=== PATIENT | female | born 1990 | race Two or more races ===

== ENCOUNTER 2024-04-10 18:12 | Emergency (ER) | payer BC, OTHER ==
[~2024-04-10] VITALS: Ht 165.1 cm; Wt 81.2 kg
[2024-04-10 18:35] LABS: Urine Bacteria FEW /hpf (None Seen); Urine Blood 3+ /uL (Negative); Urine Clarity Clear (Clear); Urine Color Colorless (Yellow); Urine Mucus FEW (None Seen); Urine Protein, UAD TRACE (Negative); Urine Specific Gravity 1.003 (1.001-1.035); Urine Urobilinogen Normal (Negative); Urine WBC 16 /hpf (0 - 5)
[2024-04-10 19:08] LABS: Basophils # (auto) 0 10 ^3/uL (0-0.2); Basophils % (auto) 0.4 % (0.0-2.0); Eosinophils # (auto) 0 10 ^3/uL (0-0.8); Eosinophils % (auto) 0.8 % (0.0-7.0); Hematocrit 42.3 % (36.0-46.0); Hemoglobin 14.7 g/dL (12.2-16.2); Lymphocytes # (auto) 1.5 10 ^3/uL (0.4-5.4); Lymphocytes % (auto) 26.3 % (10.0-50.0); Mean Corpuscular Hemoglobin 31.3 pg (28.0-32.0); Mean Corpuscular Hgb Conc. 34.7 g/dL (32.0-36.0); Mean Corpuscular Volume 90.3 fL (80.0-100.0); Monocytes # (auto) 0.5 10 ^3/uL (0-1.3); Monocytes % (auto) 7.9 % (0.0-12.0); Neutrophils # (auto) 3.7 10 ^3/uL (1.6-8.6); Neutrophils % (auto) 64.6 % (37.0-80.0); Nucleated Red Blood Cells % 0.2 %; Platelet Count (auto) 180 10^3/uL (140-450); Red Blood Cells 4.69 10^6/uL (4.0-5.20); Red Cell Distribution Width 13.5 % (11.8-14.3); White Blood Cell 5.8 10^3/uL (4.4-10.8)
[2024-04-10 19:31] LABS: Alanine Aminotransferase 19 U/L (7-40); Albumin 5.2 g/dL (3.2-4.8); Alkaline Phosphatase 81 U/L (46-116); Anion Gap 9 (5-15); Aspartate Aminotransferase 14 U/L (13-40); BUN/Creatinine Ratio 6.9 (10.0-20.0); Bilirubin, Total 0.4 mg/dL (0.2-1.0); Blood Urea Nitrogen 5 mg/dL (9-23); Calcium 9.7 mg/dL (8.7-10.4); Carbon Dioxide 24 mmol/L (20-31); Chloride 107 mmol/L (98-107); Glucose 88 mg/dL (74-106); Lipase 52 U/L (12-53); Potassium 3.6 mmol/L (3.5-5.1); Sodium 140 mmol/L (136-145); Total Protein 8.3 g/dL (5.7-8.2)
[2024-04-10] MEDS ORDERED: OMEP-448 PO (20:44)
[2024-04-10] MEDS ORDERED: FAMO20TA10 PO (20:44)
[2024-04-10 21:50] VITALS: BP 122/68; PULSE 66; RESP 14; TEMP 98.2; O2SAT 100
== END 2024-04-10 21:52 | disposition home or self-care (01) ==
LOC: ER 18:12
DX: K21.9 Gastro-esophageal reflux disease without esophagitis (principal); R19.7 Diarrhea, unspecified
CPT/HCPCS: 36415; 74176; 80053; 81001; 83690; 85025

== ENCOUNTER 2024-04-17 07:56 | Emergency (ER) | payer BC ==
[~2024-04-17] VITALS: Ht 165.1 cm; Wt 81.6 kg
[~2024-04-17 07:56] MED LIST: FAMO20TA10 PO; OMEP-448 PO
[2024-04-17] MEDS ORDERED: HYDR25SU21 PR (08:03)
[2024-04-17 08:17] VITALS: BP 121/58; PULSE 77; RESP 17; TEMP 98.8; O2SAT 97
[2024-04-17 08:50] LABS: Urine Bacteria None Seen /hpf (None Seen)
[2024-04-17 09:00] LABS: Urine Blood 1+ /uL (Negative); Urine Clarity Clear (Clear); Urine Color Colorless (Yellow); Urine Protein, UAD Negative (Negative); Urine Specific Gravity 1.007 (1.001-1.035); Urine Urobilinogen Normal (Negative); Urine WBC 1 /hpf (0 - 5)
== END 2024-04-17 09:14 | disposition home or self-care (01) ==
LOC: ER 07:56
DX: K62.5 Hemorrhage of anus and rectum (principal); K21.9 Gastro-esophageal reflux disease without esophagitis; Z79.899 Other long term (current) drug therapy
CPT/HCPCS: 81001

== ENCOUNTER 2024-04-24 20:26 | Emergency (ER) | payer BC ==
[~2024-04-24] VITALS: Ht 165.1 cm; Wt 82.0 kg
[~2024-04-24 20:26] MED LIST changes: +HYDR25SU21 PR
[2024-04-24 21:34] LABS: Basophils # (auto) 0 10 ^3/uL (0-0.2); Basophils % (auto) 0.6 % (0.0-2.0); Eosinophils # (auto) 0.1 10 ^3/uL (0-0.8); Eosinophils % (auto) 0.9 % (0.0-7.0); Hematocrit 39.8 % (36.0-46.0); Hemoglobin 13.8 g/dL (12.2-16.2); Lymphocytes # (auto) 1.7 10 ^3/uL (0.4-5.4); Lymphocytes % (auto) 24.8 % (10.0-50.0); Mean Corpuscular Hgb Conc. 34.6 g/dL (32.0-36.0); Mean Corpuscular Volume 89.7 fL (80.0-100.0); Monocytes # (auto) 0.5 10 ^3/uL (0-1.3); Neutrophils # (auto) 4.4 10 ^3/uL (1.6-8.6); Neutrophils % (auto) 65.7 % (37.0-80.0); Nucleated Red Blood Cells % 0.1 %; Platelet Count (auto) 236 10^3/uL (140-450); Red Blood Cells 4.44 10^6/uL (4.0-5.20); Red Cell Distribution Width 12.9 % (11.8-14.3); White Blood Cell 6.8 10^3/uL (4.4-10.8)
[2024-04-24 21:51] LABS: Alanine Aminotransferase 34 U/L (7-40); Albumin 4.7 g/dL (3.2-4.8); Alkaline Phosphatase 63 U/L (46-116); Anion Gap 5 (5-15); Aspartate Aminotransferase 22 U/L (13-40); BUN/Creatinine Ratio 7.6 (10.0-20.0); Blood Urea Nitrogen 5 mg/dL (9-23); Calcium 9.3 mg/dL (8.7-10.4); Carbon Dioxide 26 mmol/L (20-31); Chloride 110 mmol/L (98-107); Glucose 107 mg/dL (74-106); Lipase 57 U/L (12-53); Potassium 3.5 mmol/L (3.5-5.1); Sodium 141 mmol/L (136-145)
[2024-04-24 21:52] LABS: Bilirubin, Total 0.2 mg/dL (0.2-1.0); Total Protein 7.5 g/dL (5.7-8.2)
[2024-04-24] MEDS ORDERED: IBUP1TAB5 PO (22:20)
[2024-04-24 23:54] VITALS: BP 105/83; TEMP 98.7
[2024-04-24 23:56] VITALS: PULSE 77; RESP 16; O2SAT 93
== END 2024-04-24 23:59 | disposition home or self-care (01) ==
LOC: ER 20:26
DX: M94.0 Chondrocostal junction syndrome [Tietze] (principal); R10.2 Pelvic and perineal pain; K21.9 Gastro-esophageal reflux disease without esophagitis; Z79.899 Other long term (current) drug therapy
CPT/HCPCS: 36415; 71250; 80053; 83690; 84702; 85025

== ENCOUNTER 2024-05-06 16:12 | Emergency (ER) | payer BC ==
[~2024-05-06] VITALS: Ht 165.1 cm; Wt 81.7 kg
[~2024-05-06 16:12] MED LIST changes: +IBUP1TAB5 PO
[2024-05-06 16:24] VITALS: BP 133/95; PULSE 74; RESP 16; O2SAT 99
[2024-05-06 17:29] LABS: Basophils # (auto) 0 10 ^3/uL (0-0.2); Basophils % (auto) 0.6 % (0.0-2.0); Eosinophils # (auto) 0 10 ^3/uL (0-0.8); Eosinophils % (auto) 0.4 % (0.0-7.0); Hematocrit 39.8 % (36.0-46.0); Hemoglobin 13.8 g/dL (12.2-16.2); Lymphocytes # (auto) 1.2 10 ^3/uL (0.4-5.4); Lymphocytes % (auto) 23.4 % (10.0-50.0); Mean Corpuscular Hemoglobin 31.2 pg (28.0-32.0); Mean Corpuscular Hgb Conc. 34.7 g/dL (32.0-36.0); Monocytes # (auto) 0.4 10 ^3/uL (0-1.3); Monocytes % (auto) 7.4 % (0.0-12.0); Neutrophils # (auto) 3.6 10 ^3/uL (1.6-8.6); Neutrophils % (auto) 68.2 % (37.0-80.0); Platelet Count (auto) 189 10^3/uL (140-450); Red Blood Cells 4.43 10^6/uL (4.0-5.20); Red Cell Distribution Width 13.1 % (11.8-14.3); White Blood Cell 5.2 10^3/uL (4.4-10.8)
[2024-05-06 17:35] LABS: Chloride 107 mmol/L (98-107); Potassium 3.8 mmol/L (3.5-5.1); Sodium 141 mmol/L (136-145)
[2024-05-06 17:36] LABS: Anion Gap 8 (5-15); Calcium 9.9 mg/dL (8.7-10.4); Carbon Dioxide 26 mmol/L (20-31)
[2024-05-06 17:41] LABS: BUN/Creatinine Ratio 8.8 (10.0-20.0); Blood Urea Nitrogen 6 mg/dL (9-23); Glucose 97 mg/dL (74-106)
[2024-05-06] MEDS ORDERED: OMEP-335 PO (19:15)
== END 2024-05-06 20:22 | disposition home or self-care (01) ==
LOC: ER 16:12
DX: K92.1 Melena (principal); K21.9 Gastro-esophageal reflux disease without esophagitis; Z79.899 Other long term (current) drug therapy
CPT/HCPCS: 36415; 80048; 85025

== ENCOUNTER → 2024-05-19 | Outpatient (CLI) | payer BC ==
[~2024-05-19] MED LIST changes: +OMEP-335 PO
[2024-05-19 08:30] LABS: Urine Bacteria None Seen /hpf (None Seen)
[2024-05-19 09:15] LABS: Basophils # (auto) 0 10 ^3/uL (0-0.2); Basophils % (auto) 0.5 % (0.0-2.0); Eosinophils # (auto) 0.1 10 ^3/uL (0-0.8); Eosinophils % (auto) 1.4 % (0.0-7.0); Hematocrit 41.8 % (36.0-46.0); Hemoglobin 14.3 g/dL (12.2-16.2); Lymphocytes # (auto) 1.9 10 ^3/uL (0.4-5.4); Lymphocytes % (auto) 31.8 % (10.0-50.0); Mean Corpuscular Hemoglobin 30.9 pg (28.0-32.0); Mean Corpuscular Hgb Conc. 34.2 g/dL (32.0-36.0); Mean Corpuscular Volume 90.4 fL (80.0-100.0); Monocytes # (auto) 0.5 10 ^3/uL (0-1.3); Monocytes % (auto) 8.3 % (0.0-12.0); Neutrophils # (auto) 3.4 10 ^3/uL (1.6-8.6); Nucleated Red Blood Cells % 0.1 %; Platelet Count (auto) 182 10^3/uL (140-450); Red Blood Cells 4.62 10^6/uL (4.0-5.20); Red Cell Distribution Width 13.6 % (11.8-14.3); White Blood Cell 5.8 10^3/uL (4.4-10.8)
[2024-05-19 09:19] LABS: LDL Cholesterol 118 mg/dL (< 100); Triglycerides 108 mg/dL (< 150)
[2024-05-19 09:20] LABS: Cholesterol 170 mg/dL (< 200); HDL Cholesterol 47 mg/dL (40-59)
[2024-05-19 10:19] LABS: Urine Blood 2+ /uL (Negative); Urine Clarity Clear (Clear); Urine Color Light-Yellow (Yellow); Urine Protein, UAD Negative (Negative); Urine Specific Gravity 1.023 (1.001-1.035); Urine Urobilinogen Normal (Negative); Urine WBC <1 /hpf (0 - 5); Urine pH 5.5 (5.0-9.0)
[2024-05-19 14:50] LABS: Alanine Aminotransferase 29 U/L (7-40); Albumin 4.7 g/dL (3.2-4.8); Alkaline Phosphatase 69 U/L (46-116); Anion Gap 12 (5-15); Aspartate Aminotransferase 15 U/L (13-40); BUN/Creatinine Ratio 15.2 (10.0-20.0); Bilirubin, Total 0.5 mg/dL (0.2-1.0); Blood Urea Nitrogen 12 mg/dL (9-23); Calcium 9.8 mg/dL (8.7-10.4); Carbon Dioxide 21 mmol/L (20-31); Chloride 107 mmol/L (98-107); Glucose 95 mg/dL (74-106); Potassium 4.4 mmol/L (3.5-5.1); Sodium 140 mmol/L (136-145); Total Protein 7.9 g/dL (5.7-8.2)
== END | disposition home or self-care (01) ==
LOC: LAB 08:16
PROVIDERS: ATTEND Internal Medicine
DX: Z13.31 Encounter for screening for depression (principal)
CPT/HCPCS: 36415; 80053; 80061; 81001; 82270; 83036; 84443; 85025

== ENCOUNTER 2024-07-06 07:02 | Emergency (ER) | payer BC ==
[~2024-07-06] VITALS: Ht 165.1 cm; Wt 76.9 kg
--- NOTE | 2024-07-06 07:51 | ED.PDOC ---
GI ASSESSMENT HPI Comments 33Y F with PMHx GERD presents to ED for chief complaint RUQ abd pain [id number] with diarrhea. Pt claims she is jaundiced under her tongue and soles of her feet. Pt states she also has a "weird taste" on her tongue. LMP 06/22/2024. Pt was seen by GI specialist on 06/07/2024 and was told symptoms could be caused by liver. Chief Complaint: Abdominal Pain Time Seen by MD: 07:43 Primary Care Provider: MATT Beckman Notes: Nurses Notes, Medications, Allergies Allergies: Coded Allergies: NO KNOWN ALLERGIES (Unverified , 04/10/24) Home Meds Active Scripts Omeprazole (Omeprazole) 20 Mg Tab, 20 MG PO DAILY for 21 Days, #21 TAB Prov:ELFEGO MALDONADO 05/06/24 Ibuprofen Micronized (Ibuprofen) 600 Mg Tab, 600 MG PO Q6HP PRN, #30 TAB prn pain take with food Prov:VINAY FIELDS MD 04/24/24 Hydrocortisone Acetate (Anusol-Hc) 25 Mg Sup, 1 SUPP ND BID, #14 SUPP Prov:LEDY RAHMAN MD 04/17/24 Famotidine (PEPCID TABLET) 20 Mg Tb, 1 TAB PO BID, #60 TAB 5 Refills Prov:PILAR HUNG 04/10/24 Omeprazole (Omeprazole Dr) 40 Mg Cap, 40 MG PO DAILY, #40 CAP Prov:PILAR HUNG 04/10/24 Information Source: Patient Mode of Arrival: Ambulatory Timing: Months Duration: Since onset Quality: Sharp Vomitus: None Stool: Loose, Watery Severity: Mild Recent: None Recent Hx of: None Pain Location: RUQ Modifying Factors: Nothing Associated sign and symptoms: Diarrhea, Abdominal Pain Past Medical History PAST MEDICAL HISTORY: GERD Surgical History: Denies all surgeries INTERNATIONAL MARKETING COORDINATOR History: No Pertinent INTERNATIONAL MARKETING COORDINATOR History Family History Family History: Reviewed,noncontributory to illness, Unknown Social History Smoker: Non-Smoker Alcohol: Denies ETOH Use Drugs: Denies Drug Use Lives In: Home Constitutional: denies: chills, diaphoresis, fatigue, fever, malaise, sweats, weakness, others EENTM: denies: blurred vision, double vision, ear bleeding, ear discharge, ear drainage, ear pain, ear ringing, eye pain, eye redness, hearing loss, mouth pain, mouth swelling, nasal discharge, nose bleeding, nose congestion, nose pain, photophobia, tearing, throat pain, throat swelling, voice changes, others Respiratory: denies: cough, hemoptysis, orthopnea, SOB at rest, shortness of breath, SOB with excertion, stridor, wheezing, others Cardiovascular: denies: chest pain, dizzy spells, diaphoresis, Dyspnea on exertion, edema, irregular heart beat, left arm pain, lightheadedness, palpitations, PND, syncope, others Gastrointestinal: reports: abdominal pain, diarrhea; denies: abdomen distended, blood streaked bowels, constipated, dysphagia, difficulty swallowing, hematemesis, melena, nausea, poor appetite, poor fluid intake, rectal bleeding, rectal pain, vomiting, others Genitourinary: denies: abnormal vagina bleeding, burning, dyspareunia, dysuria, flank pain, frequency, hematuria, incontinence, pain, , vagina discharge, urgency, others Neurological: denies: dizziness, fainting, headache, left sided numbness, left sided weakness, numbness, paresthesia, pre-existing deficit, right sided numbness, right sided weakness, seizure, speech problems, tingling, tremors, weakness, others Musculoskeletal: denies: back pain, gout, joint pain, joint swelling, muscle pain, muscle stiffness, neck pain, others Integumetry: denies: bruises, change in color, change in hair/nails, dryness, laceration, lesions, lumps, rash, wounds, others Allergic/Immunocompromised: denies: Difficulty Healing, Frequent Infections, Hives, Itching, others Hematologic/Lymphatic: denies: anemia, blood clots, easy bleeding, easy bruising, swollen glands, others Endocrine: denies: excessive hunger, excessive sweating, excessive thirst, excessive urination, flushing, intolerance to cold, intolerance to heat, unexplained weight gain, unexplained weight loss, others Psychiatric: denies: anxiety, bipolar disorder, depression, hopeless, panic disorder, schizophrenia, sleepless, suicidal, others All Other Systems: Reviewed and Negative Physical Exam General Appearance: No Apparent Distress, Normal, Other (Anxious) HEENT: Normal ENT Inspection, PERRL/EOMI, Pharynx Normal, TMs Normal, Other (No scleral icterus patient is convinced that she has jaundice she does not) Neck: Full Range of Motion, Non-Tender, Normal, Normal Inspection Respiratory: Chest Non-Tender, Lungs Clear, No Accessory Muscle Use, No Respiratory Distress, Normal Breath Sounds Cardiovascular: No Edema, No JVD, No Murmur, No Gallop, Normal Peripheral Pulses, Regular Rate/Rhythm Breast Exam: Deferred Gastrointestinal: No Organomegaly, Non Tender, No Pulsatile Mass, Normal Bowel Sounds, Soft Genitalia: Deferred Pelvic: Deferred Rectal: Deferred Extremities: No calf tenderness, Normal capillary refill, Normal inspection, Normal range of motion, Non-tender, No pedal edema Musculoskeletal : Apperance: Normal Neurologic: Alert, plasma table operator II-XII nml as Tested, No Motor Deficits, Normal Affect, Normal Mood, No Sensory Deficits Cerebellar Function: Normal Reflexes: Normal Skin: Dry, Normal Color, Warm Peripheral Pulses: 1+ carotid (R), 1+ carotid (L) Lymphatic: No Adenopathy Was a procedure done? Was a procedure done?: No GI differential Dx Differential Diagnosis: Cholecystitis, Gastroenteritis, UTI, Dehydration, Elect rolyte Imbalance, , Bacterial, Viral, Anemia X-Ray, Labs, Meds, VS Vital Signs Date Time Temp Pulse Resp B/P (MAP) Pulse Ox O2 Delivery O2 Flow Rate FiO2 07/06/24 08:12 76 17 98 Room Air 07/06/24 08:12 98.3 76 17 128/69 (88) 98 98.3 07/06/24 07:23 98.7 85 18 133/89 (104) 98 Lab Test 07/06/24 08:15 07/06/24 07:47 Range/Units White Blood Count 4.1 L 4.4-10.8 10^3/uL Red Blood Count 4.70 4.0-5.20 10^6/uL Hemoglobin 14.4 12.2-16.2 g/dL Hematocrit 42.1 36.0-46.0 % Mean Corpuscular Volume 89.6 80.0-100.0 fL Mean Corpuscular Hemoglobin 30.7 28.0-32.0 pg Mean Corpuscular Hemoglobin Concent 34.3 32.0-36.0 g/dL Red Cell Distribution Width 13.5 11.8-14.3 % Platelet Count 179 140-450 10^3/uL Mean Platelet Volume 11.0 H 6.9-10.8 fL Neutrophils (%) (Auto) 71.9 37.0-80.0 % Lymphocytes (%) (Auto) 19.6 10.0-50.0 % Monocytes (%) (Auto) 7.8 0.0-12.0 % Eosinophils (%) (Auto) 0.3 0.0-7.0 % Basophils (%) (Auto) 0.4 0.0-2.0 % Neutrophils # (Auto) 2.9 1.6-8.6 10 ^3/uL Lymphocytes # (Auto) 0.8 0.4-5.4 10 ^3/uL Monocytes # (Auto) 0.3 0-1.3 10 ^3/uL Eosinophils # (Auto) 0 0-0.8 10 ^3/uL Basophils # (Auto) 0 0-0.2 10 ^3/uL Nucleated Red Blood Cells 0.0 % Sodium Level 139 136-145 mmol/L Potassium Level 3.6 3.5-5.1 mmol/L Chloride Level 107 98-107 mmol/L Carbon Dioxide Level 24 20-31 mmol/L Anion Gap 8 5-15 Blood Urea Nitrogen 5 L 9-23 mg/dL Creatinine 0.74 0.550-1.02 mg/dL Glomerular Filtration Rate Calc 111 >90 mL/min BUN/Creatinine Ratio 6.8 L 10.0-20.0 Serum Glucose 91 74-106 mg/dL Calcium Level 10.0 8.7-10.4 mg/dL Total Bilirubin 0.7 0.2-1.0 mg/dL Aspartate Amino Transferase (AST) 16 13-40 U/L Alanine Aminotransferase (ALT) 18 7-40 U/L Alkaline Phosphatase 71 46-116 U/L Total Protein 7.8 5.7-8.2 g/dL Albumin 4.8 3.2-4.8 g/dL Beta HCG, Quantitative 1.4 L 1.5-4.2 mIU/mL Urine Color Light-yellow Yellow Urine Clarity Clear Clear Urine pH 6.0 5.0-9.0 Urine Specific [place] 1.011 1.001-1.035 Urine Protein Negative Negative Urine Ketones 3+ H Negative Urine Blood 1+ H Negative /uL Urine Nitrite Negative Negative Urine Bilirubin Negative Negative Urine Urobilinogen Normal Negative mg/dL Urine Leukocyte Esterase Negative Negative /uL Urine RBC 2 0 - 4 /hpf Urine WBC 1 0 - 5 /hpf Urine Squamous Epithelial Cells Few <5 /hpf Urine Bacteria Few H None Seen /hpf Urine Mucus Few None Seen Urine Glucose Normal Normal mg/dL [facility] [id number] [facility] [address] Ph: [phone] DIAGNOSTIC IMAGING Diagnostic Imaging Report : [id number] Signed PATIENT: MARCO ANTONIO TIRADO ACCT: [id number] UNIT: [id number] : 1990 LOC: ER ROOM / BED: / AGE / SEX: 33 / F ADM STATUS: REG ER SERVICE [id number] ORDERING PHYSICIAN: SONU HUGHES MD PROCEDURE(s): GBUS - GALLBLADDER REASON: Right upper quadrant abdominal pain ORDER NUMBER(s): [id number], ACCESSION NUMBER(s): [id number] INDICATION: Right upper quadrant abdominal pain TECHNIQUE: Real time ultrasonography of the right upper quadrant was performed. COMPARISON: CT 04/10/2024 FINDINGS: The liver appears normal in echogenicity. There is cholelithiasis with out evidence of significant wall thickening or pericholecystic fluid. Common bile duct estimated 2 mm, within normal limits. The right kidney measures 10.5 cm and appears unremarkable. Visualized portions of the pancreas, intrahepatic IVC, abdominal aorta appear unremarkable. IMPRESSION: 1. Cholelithiasis without evidence of wall thickening or pericholecystic fluid. ATED BY: FENG ROSARIO MD DICTATED DATE/TIME: 07/06/24826 SIGNED BY: FENG ROSARIO MD SIGNED DATE/TIME: 07/06/24826 CC: X-Ray, Labs, Meds, VS Comment Course in the emergency department eventful patient came in complaining of abdominal pain right upper quadrant for about a month with episodic diarrhea and she has pursued it she is jaundiced Blood pressure 133/89 CBC normal Urine shows 3+ ketones 1+ blood and bacteria The ultrasound shows cholelithiasis without cholecystitis negative CMP normal including the bilirubin and the liver enzymes Patient will be discharged home she has been reassured she does not have jaundice Time of 1ST Reevaluation: 08:13 Reevaluation 1ST: Unchanged Time of 2ND Reevaluation: 09:04 Reevaluation 2ND: Unchanged Consultation: PCP Patient Education/Counseling: Diagnosis, Treatment, Prognosis, Need For Follow Up Family Education/Counseling: Diagnosis, Treatment, Prognosis, Need For Follow Up, No Family Present Departure 1 Departure Time of Disposition: 09:05 Impression: Primary Impression: Nonspecific abdominal pain Additional Impression: Cholelithiasis Qualified Codes: K80.20 - Calculus of gallbladder without cholecystitis without obstruction Disposition: 01 HOME / SELF CARE / HOMELESS Condition: Good Additional Instructions: Push fluids and follow up with your PCP Avoid heavy meals Discharged With: Self Critical Care Note Critical Care Time?: No Stability Stability form required: No Heart Score Heart Score: Heart Score Response (Comments) Value History N/A 0 EKG N/A 0 Age <45 0 Risk Factors No known risk factors 0 Troponin N/A 0 Total 0 I personally scribed for SONU HUGHES MD ([email or web address]) on 07/06/24 at 07:51. Electronically submitted by Jessica Thapa ([email or web address]). I personally scribed for SONU HUGHES MD ([email or web address]) on 07/06/24 at 08:29. Electronically submitted by Jessica Thapa ([email or web address]). SONU HUGHES MD Jul 06, 2024 07:51
[2024-07-06 08:12] VITALS: BP 128/69; PULSE 76; RESP 17; TEMP 98.3; O2SAT 98
[2024-07-06 08:21] LABS: Urine Bacteria FEW /hpf (None Seen); Urine Blood 1+ /uL (Negative); Urine Clarity Clear (Clear); Urine Color Light-Yellow (Yellow); Urine Mucus FEW (None Seen); Urine Protein, UAD Negative (Negative); Urine Specific Gravity 1.011 (1.001-1.035); Urine Squamous Epithelial Cell FEW /hpf (<5); Urine Urobilinogen Normal (Negative); Urine WBC 1 /hpf (0 - 5)
--- NOTE | 2024-07-06 08:27 | DVH ---
INDICATION: Right upper quadrant abdominal pain TECHNIQUE: Real time ultrasonography of the right upper quadrant was performed. COMPARISON: CT 04/10/2024 FINDINGS: The liver appears normal in echogenicity. There is cholelithiasis with out evidence of significant wa ll thickening or pericholecystic fluid. Common bile duct estimated 2 mm, within normal limits. The right kidney measures 10.5 cm and appears unremarkable. Visualized portions of the pancreas, int rahepatic IVC, abdominal aorta appear unremarkable. IMPRESSION: 1. Cholelithiasis without evidence of wall thickening or pericholecystic fluid.
[2024-07-06 08:34] LABS: Basophils # (auto) 0 10 ^3/uL (0-0.2); Basophils % (auto) 0.4 % (0.0-2.0); Eosinophils # (auto) 0 10 ^3/uL (0-0.8); Eosinophils % (auto) 0.3 % (0.0-7.0); Hematocrit 42.1 % (36.0-46.0); Hemoglobin 14.4 g/dL (12.2-16.2); Lymphocytes # (auto) 0.8 10 ^3/uL (0.4-5.4); Lymphocytes % (auto) 19.6 % (10.0-50.0); Mean Corpuscular Hemoglobin 30.7 pg (28.0-32.0); Mean Corpuscular Hgb Conc. 34.3 g/dL (32.0-36.0); Mean Corpuscular Volume 89.6 fL (80.0-100.0); Monocytes # (auto) 0.3 10 ^3/uL (0-1.3); Monocytes % (auto) 7.8 % (0.0-12.0); Neutrophils # (auto) 2.9 10 ^3/uL (1.6-8.6); Neutrophils % (auto) 71.9 % (37.0-80.0); Platelet Count (auto) 179 10^3/uL (140-450); Red Cell Distribution Width 13.5 % (11.8-14.3); White Blood Cell 4.1 10^3/uL (4.4-10.8)
[2024-07-06 08:55] LABS: Alanine Aminotransferase 18 U/L (7-40); Alkaline Phosphatase 71 U/L (46-116); Anion Gap 8 (5-15); Aspartate Aminotransferase 16 U/L (13-40); BUN/Creatinine Ratio 6.8 (10.0-20.0); Carbon Dioxide 24 mmol/L (20-31); Chloride 107 mmol/L (98-107); Glucose 91 mg/dL (74-106); Potassium 3.6 mmol/L (3.5-5.1); Sodium 139 mmol/L (136-145)
[2024-07-06 08:56] LABS: Bilirubin, Total 0.7 mg/dL (0.2-1.0); Total Protein 7.8 g/dL (5.7-8.2)
[2024-07-06 08:57] LABS: Albumin 4.8 g/dL (3.2-4.8); Blood Urea Nitrogen 5 mg/dL (9-23)
== END 2024-07-06 09:10 | disposition home or self-care (01) ==
LOC: ER 07:02
DX: K80.20 Calculus of gallbladder without cholecystitis without obstruction (principal); K21.9 Gastro-esophageal reflux disease without esophagitis; Z79.899 Other long term (current) drug therapy
CPT/HCPCS: 36415; 76705; 80053; 81001; 84702; 85025

== ENCOUNTER 2024-07-30 09:55 | Day surgery (SDC) | payer BC ==
[2024-07-26 11:00] LABS: Urine Bacteria None Seen /hpf (None Seen)
[2024-07-26 11:36] LABS: Urine Blood TRACE /uL (Negative); Urine Clarity Clear (Clear); Urine Color Light-Yellow (Yellow); Urine Mucus FEW (None Seen); Urine Protein, UAD Negative (Negative); Urine Specific Gravity 1.021 (1.001-1.035); Urine Squamous Epithelial Cell FEW /hpf (<5); Urine Urobilinogen Normal (Negative); Urine WBC < 1 /HPF (0-5)
[2024-07-26 11:41] LABS: Basophils # (auto) 0 10 ^3/uL (0-0.2); Basophils % (auto) 0.5 % (0.0-2.0); Eosinophils # (auto) 0 10 ^3/uL (0-0.8); Eosinophils % (auto) 0.5 % (0.0-7.0); Hematocrit 40.7 % (36.0-46.0); Hemoglobin 13.7 g/dL (12.2-16.2); Lymphocytes # (auto) 1.4 10 ^3/uL (0.4-5.4); Lymphocytes % (auto) 33.3 % (10.0-50.0); Mean Corpuscular Hemoglobin 30.3 pg (28.0-32.0); Mean Corpuscular Hgb Conc. 33.7 g/dL (32.0-36.0); Mean Corpuscular Volume 90.1 fL (80.0-100.0); Monocytes # (auto) 0.3 10 ^3/uL (0-1.3); Monocytes % (auto) 7.1 % (0.0-12.0); Neutrophils # (auto) 2.5 10 ^3/uL (1.6-8.6); Neutrophils % (auto) 58.6 % (37.0-80.0); Nucleated Red Blood Cells % 0.1 %; Platelet Count (auto) 175 10^3/uL (140-450); Red Blood Cells 4.52 10^6/uL (4.0-5.20); Red Cell Distribution Width 13.6 % (11.8-14.3); White Blood Cell 4.3 10^3/uL (4.4-10.8)
[2024-07-26 11:53] LABS: Alanine Aminotransferase 23 U/L (7-40); Alkaline Phosphatase 73 U/L (46-116); Anion Gap 7 (5-15); Carbon Dioxide 27 mmol/L (20-31); Chloride 106 mmol/L (98-107); Glucose 92 mg/dL (74-106); Potassium 4.4 mmol/L (3.5-5.1); Sodium 140 mmol/L (136-145)
[2024-07-26 11:54] LABS: Aspartate Aminotransferase 15 U/L (13-40); BUN/Creatinine Ratio 12.1 (10.0-20.0)
[2024-07-26 11:56] LABS: Bilirubin, Total 0.5 mg/dL (0.2-1.0); Total Protein 7.5 g/dL (5.7-8.2)
[2024-07-26 11:58] LABS: INR 1.02 (0.9-1.15); Partial Thromboplastin Time 26.7 SEC (24.5-34.5); Prothrombin Time 10.8 sec (9.3-11.8)
[2024-07-26 12:01] LABS: Albumin 4.9 g/dL (3.2-4.8); Blood Urea Nitrogen 8 mg/dL (9-23)
[~2024-07-30] VITALS: Ht 165.1 cm; Wt 76.2 kg
[~2024-07-30 09:55] MED LIST changes: +ASCO500T11 PO; -FAMO20TA10 PO; -HYDR25SU21 PR; -IBUP1TAB5 PO; +MAGN1CAP PO; -OMEP-335 PO; -OMEP-448 PO
[2024-07-30 11:33] VITALS: PULSE 80; RESP 16; TEMP 97.1; O2SAT 100
[2024-07-30 12:03] VITALS: BP 112/61; PULSE 63; RESP 14; O2SAT 98
--- NOTE | 2024-08-13 09:24 | DVHNC2 ---
Procedure - DATE OF PROCEDURE: JULY 30, 2024 SURGEON: NOAH CORDERO MD REFERRING PROVIDER: MCKENNA GUTIERREZ MD PROCEDURE PERFORMED: 1. ESOPHAGOGASTRODUODENOSCOPY WITH BIOPSY WITH ANESTHESIA 2. COLONOSCOPY WITH BIOPSY WITH ANESTHESIA PRE-PROCEDURE DIAGNOSIS: 1. GERD REFRACTORY TO TREATMENT 2. ABDOMINAL PAIN 3. MELENA 4. BLOATING 5. CONSTIPATION POSTPROCEDURE DIAGNOSIS: 1. MILD EROSIVE ESOPHAGITIS 2. MILD EROSIVE GASTRITIS 3. EXTERNAL HEMORRHOIDS OTHERWISE NORMAL COLONOSCOPY INDICATIONS FOR PROCEDURE: The patient is a 33-year-old female with a past medical history significant for chronic abdominal pain, GERD refractory to treatment, melena, complaints of bloating and constipation lasting more than three months. EGD and colonoscopy are warranted for evaluation. MEDICATIONS USED: Per Dr. Mccloud anesthesia DETAILS OF THE PROCEDURE: Informed consent was obtained after risks, benefits, and alternatives, were discussed at length with the patient. The patient gave consent to the procedure as well as the medication used for anesthesia. The patient was placed in the left lateral decubitus position. An Olympus endoscope was inserted into the oropharynx and advanced into the esophagus then into the stomach and then into the duodenal bulb and duodenum. The duodenal bulb and duodenum were normal in appearance. Biopsies were taken given the patient's symptoms. The scope was then withdrawn. The patient had mild erosive gastritis. Biopsies were taken. The mucosa of the stomach was carefully evaluated. There were no other findings. Retroflexion showed no abnormalities. The scope was then withdrawn. The patient had a Z-line at 37 cm in mild e rosive esophagitis. The scope was then withdrawn and the procedure completed. The patient tolerated the procedure well. The patient remained in the left lateral decubitus position. Digital rectal exam showed external hemorrhoids. An Olympus variable torsion pediatric colonoscope was inserted into the rectum and advanced to the cecum. The cecum was identified by the ileocecal valve and the appendiceal orifice. The scope was then withdrawn. The prep was good with little amounts of liquid stool throughout. The terminal ileum was intubated and found to be normal. Biopsies were taken given the patient's symptoms. There were no large polyps, masses, strictures, diverticula, or arteriovenous malformation seen. Random biopsies were taken to rule out microscopic colitis. More than 6 minutes of withdrawal time was noted. Retroflexion showed no abnormalities. The patient tolerated the procedure well. BRISTOL BOWEL PREP SCORE: 9 COLONOSCOPY START TIME: 11:21a.m. CECUM TIME: 11:24 a.m. COLONOSCOPY END TIME: 11:30 a.m. IMPRESSION: 1. MILD EROSIVE ESOPHAGITIS, LA GRADE A 2. MILD EROSIVE GASTRITIS 3. NORMAL-APPEARING COLON AND TERMINAL ILEUM 4. SMALL EXTERNAL HEMORRHOIDS RECOMMENDATIONS: 1. FOLLOW-UP WITH PROCEDURE RESULTS AND PATHOLOGY IN GI CLINIC 2. REPEAT COLONOSCOPY AT AGE OF SCREENING UNLESS OTHERWISE INDICATED BY SYMPTOMS THAT ARE FAMILY HISTORY 3. ANTI-REFLUX PRECAUTIONS, ELEVATE HEAD OF BED AT NIGHT, AVOID LATE NIGHT EATING, AVOID SPICY FOOD, GREASY FOOD, CAFFEINE, CHOCOLATE, TOMATOES, CITRUS, TOBACCO AND ALCOHOL 4. PATIENT SHOULD BE ON A PROTON PUMP INHIBITOR DAILY 5. FOLLOW UP WITH COLONOSCOPY BIOPSY RESULTS 6. CONSIDER FURTHER WORKUP, IBS, PANCREATIC INSUFFICIENCY, SIBO VERSUS OTHERS, AND SMALL-BOWEL WORKUP FOR MELENA IF THE PATIENT IS ANEMIC 7. FOLLOW UP WITH PRIMARY CARE PHYSICIAN I WOULD LIKE TO THANK DR. GUTIERREZ FOR THIS REFERRAL NOAH CORDERO MD Aug 13, 2024 09:24
== END 2024-07-30 12:13 | disposition home or self-care (01) ==
LOC: GI 09:55
PROVIDERS: ATTEND Specialist
DX: R10.9 Unspecified abdominal pain (principal); K59.00 Constipation, unspecified; K92.1 Melena; K64.4 Residual hemorrhoidal skin tags; G89.29 Other chronic pain; K21.00 Gastro-esophageal reflux disease with esophagitis, without bleeding; K29.50 Unspecified chronic gastritis without bleeding; R14.0 Abdominal distension (gaseous); R19.7 Diarrhea, unspecified
CPT/HCPCS: 36415; 80053; 81001; 84702; 85025; 85610; 85730

== ENCOUNTER 2025-02-11 12:28 | Emergency (ER) | payer BC, OTHER ==
[~2025-02-11] VITALS: Ht 165.1 cm; Wt 92.1 kg
[2025-02-11 12:38] VITALS: BP 147/71; PULSE 93; RESP 16; TEMP 98.4; O2SAT 98
[2025-02-11] MEDS ORDERED: ONDANSETRON ODT 4 MG TAB PO ONE (13:00)
[2025-02-11] MEDS ORDERED: HYDROcodone-ACET 10/325MG TAB PO ONE (13:00)
--- NOTE | 2025-02-11 13:30 | ED.PDOC ---
History of Present Illness HPI Comments Patient is a morbidly obese 34 y/o F who presents with c/c headache, dizziness, and nausea. Endorsement of 1x month history of symptoms following initial, unprovoked and atraumatic onset. headache is localized to bilateral rastafari regions of her head. Dizziness describes as room spinning sensation. No prior h istory of symptoms in the past along with any recent injuries or known sick contacts. Patient reports on being evaluated and worked up at an ED, where she had a benign CT scan, 2x weeks ago for symptoms. Patient denies any vomiting, fever, chills, lightheadedness, or further associated symptoms. Patient states she has talked to her primary care provider and is scheduled for a evaluation in the next week. Chief Complaint: Headache Time Seen by MD: 12:55 Primary Care Provider: MATT Beckman Notes: Nurses Notes, Medications, Allergies Allergies: Coded Allergies: NO KNOWN ALLERGIES (Unverified , 02/11/25) Home Meds Active Scripts Hydrocodone-Acetaminophen (Hydrocodone Bitartrate/AC 10-325 mg) 1 Tab Tab, 1 TAB PO Q12HP PRN, #6 TAB Prov:ELFEGO MALDONADO PAC 02/11/25 Reported Medications Ascorbic Acid (VITAMIN C TABLET) 500 Mg Tb, 1000 MG PO DAILY, #30 TAB 3 Refills 07/26/24 Magnesium Oxide (Magnesium) 500 Mg Cap, 500 MG PO, CAP 07/26/24 Information Source: Patient Mode of Arrival: Ambulatory Severity: Moderate Timing: Weeks Duration: Since onset Prehospital treatment: None Past Medical History PAST MEDICAL HISTORY: GERD Past Medical History (Other): Recent headache concerns Surgical History: Denies all surgeries EGG SORTER History: No Pertinent EGG SORTER History Family History Family History: Reviewed,noncontributory to illness, Unknown Social History Smoker: Non-Smoker Alcohol: Denies ETOH Use Drugs: Denies Drug Use Lives In: Home Constitutional: denies: chills, diaphoresis, fatigue, fever, malaise, sweats, weakness, others EENTM: denies: blurred vision, double vision, ear bleeding, ear discharge, ear drainage, ear pain, ear ringing, eye pain, eye redness, hearing loss, mouth pain, mouth swelling, nasal discharge, nose bleeding, nose congestion, nose pain, photophobia, tearing, throat pain, throat swelling, voice changes, others Respiratory: denies: cough, hemoptysis, orthopnea, SOB at rest, shortness of breath, SOB with excertion, stridor, wheezing, others Cardiovascular: denies: chest pain, dizzy spells, diaphoresis, Dyspnea on exe rtion, edema, irregular heart beat, left arm pain, lightheadedness, palpitations, PND, syncope, others Gastrointestinal: reports: nausea; denies: abdomen distended, abdominal pain, blood streaked bowels, constipated, diarrhea, dysphagia, difficulty swallowing, hematemesis, melena, poor appetite, poor fluid intake, rectal bleeding, rectal p ain, vomiting, others Genitourinary: denies: abnormal vagina bleeding, burning, dyspareunia, dysuria, flank pain, frequency, hematuria, incontinence, pain, , vagina discharge, urgency, others Neurological: reports: dizziness, headache; denies: fainting, left sided numbness, left sided weakness, numbness, paresthesia, pre-existing deficit, right sided numbness, right sided weakness, seizure, speech problems, tingling, tremors, weakness, others Musculoskeletal: denies: back pain, gout, joint pain, joint swelling, muscle pain, muscle stiffness, neck pain, others Integumetry: denies: bruises, change in color, change in hair/nails, dryness, laceration, lesions, lumps, rash, wounds, others Allergic/Immunocompromised: denies: Difficulty Healing, Frequent Infections, Hives, Itching, others Hematologic/Lymphatic: denies: anemia, blood clots, easy bleeding, easy bruising, swollen glands, others Endocrine: denies: excessive hunger, excessive sweating, excessive thirst, excessive urination, flushing, intolerance to cold, intolerance to heat, unexplained weight gain, unexplained weight loss, others Psychiatric: denies: anxiety, bipolar disorder, depression, hopeless, panic dis order, schizophrenia, sleepless, suicidal, others All Other Systems: Reviewed and Negative (as per HPI) Physical Exam General Appearance: Moderate Distress (Moderate distress due to headache concerns. Patient was tearful at time of evaluation.), Normal HEENT: Head (Unremarkable cranial evaluation. No signs of trauma. No skull depressions or deformities.), Normal ENT Inspection, Pharynx Normal, TMs Normal Neck: Full Range of Motion, Non-Tender, Normal, Normal Inspection Respiratory: Chest Non-Tender, Lungs Clear, No Accessory Muscle Use, No Respiratory Distress, Normal Breath Sounds Cardiovascular: No Edema, No JVD, No Murmur, No Gallop, Normal Peripheral Pulses, Regular Rate/Rhythm Breast Exam: Deferred Gastrointestinal: No Organomegaly, Non Tender, No Pulsatile Mass, Normal Bowel Sounds, Soft Genitalia: Deferred Pelvic: Deferred Rectal: Deferred Extremities: No calf tenderness, Normal capillary refill, Normal inspection, Normal range of motion, Non-tender, No pedal edema Neurologic: Alert, No Motor Deficits, Normal Affect, Normal Mood, No Sensory Deficits Cerebellar Function: NOT DONE Reflexes: NOT DONE Skin: Dry, Normal Color, Warm Lymphatic: No Adenopathy Was a procedure done? Was a procedure done?: No Differential Dx Considerations may include: Migraine headache, tension headache, cluster headache, generalize headache X-Ray, Labs, Meds, VS Vital Signs Date Time Temp Pulse Resp B/P (MAP) Pulse Ox O2 Delivery O2 Flow Rate FiO2 02/11/25 12:38 98.4 93 16 147/71 98 98.4 X-Ray, Labs, Meds, VS Comment Spent time discussing concerns with the patient. Advised that is since she recently had a CT evaluation of the head and that there were no traumatic events subsequent to that study as well as laboratory workup, patient does not require any intervention today. Advised patient that I will resolve her headache today, but she needs to follow up with the primary care provider for neurologic referral and evaluation. Nursing notified me they attempted multiple times to locate the patient for medication dispensing, but it appears the patient has eloped from the facility. Time of 1ST Reevaluation: 14:44 Reevaluation 1ST: Improved Consultation: PCP, Neurology Patient Education/Counseling: Diagnosis, Treatment, Need For Follow Up Family Education/Counseling: Diagnosis, Treatment, No Family Present SEPSIS Sepsis Screen Date sepsis recognized/suspect: Feb 11, 2025 Time Sepsis recognized/suspect: 1241 Recent Procedure: No On Antibiotic Therapy: No Respiratory Rate >20: No Heart Rate >90: Yes Temp<36 C (96.8 F) or >38.3 C: No SBP <90 or MAP <65 mmHG: No New Acute Mental Status Change: No Is the patient on CPAP, BIPAP,: No Vital Signs Date Time Temp Pulse Resp B/P (MAP) Pulse Ox O2 Delivery O2 Flow Rate FiO2 02/11/25 12:38 98.4 93 16 147/71 98 98.4 Departure 1 Departure Time of Disposition: 14:44 Impression: Primary Impression: Headache Disposition: 07 LEFT AWOL/ELOPED Condition: Stable Discharged With: Self, Friend Critical Care Note Critical Care Time?: No Stability Stability form required: No Heart Score Heart Score: Heart Score Response (Comments) Value History N/A 0 EKG N/A 0 Age N/A 0 Risk Factors N/A 0 Troponin N/A 0 Total 0 I personally scribed for ELFEGO MALDONADO PAC ([email or web address]) on 02/11/25 at 13:30. Electronically submitted by Zander Logan ([email or web address]). ELFEGO MALDONADO PAC Feb 11, 2025 13:30
[2025-02-11] MEDS ORDERED: HYDR-4798 PO (14:45)
== END 2025-02-11 14:48 | disposition left against medical advice (07) ==
LOC: ER 12:33
DX: R51.9 Headache, unspecified (principal); Z79.899 Other long term (current) drug therapy